=== PATIENT | male | born 1955 ===

== ENCOUNTER 2024-01-24 01:15 | Outpatient (CLI) | payer MEDICARE, SELFPAY ==
--- NOTE | 2024-01-24 | ETT_ITS ---
APPROVED REPORT Exam: Exercise Treadmill Patient Location: Out-Patient Room/Bed: Stress Nurse: Evelyne March RN Ordering Provider:JOSE ANGEL WALTER, Contact Number: [phone] BMI: 24.39 Baseline Rhythm: Sinus Rhythm Comment: PAC's, T wave inversion in aVL Indications: Syncope, Collapse, Cardiac arrhythmia, SOB Medical History Medical History: Dizziness, HLD, Gout, Migraines, Syncope, Rare tobacco use, Anxiety, Depression Cardiac Medications: Allopurinol, Aspirin, Bupriopion, Icosapent ethyl Allergies: Seasonal Cardiac Risk Factors: +family history, +HLD, +rare tobacco use Previous Cardiac Procedures: None Pretest Chest Pain Characteristics: None Exercise History: Indeterminate Physical Disabilities: None Lung Sounds: LCTA bilaterally Heart Sounds: S1/S2 regular Stress Test Details Test: Exercise stress testing was performed using a Subhash protocol. Rest Stress HR Resting HR Supine: 58 bpm Max Heart Rate (APMHR): 151 bpm Resting HR Standin bpm Target HR (85% APMHR): 128 bpm Max HR Achieved: 148 bpm % of APMHR: 98 Recovery HR: 83 bpm HR response to stress: Normal HR response to stress BP Resting BP Supine: 112/80 mmHg Resting BP Standin/84 mmHg Max BP: 188/82 mmHg Recovery BP: 142/88 mmHg BP response to stress: Normal blood pressure response to stress. ECG Resting ECG: Sinus Rhythm Ectopy: PAC's Comment: T wave inversion in aVL Stress ECG: Sinus Tachycardia ST Change: No significant ST segment changes noted Arrhythmia: PAC's Recovery ECG: Sinus Rhythm Recovery ST Change: No significant ST segment changes noted Recovery Arrhythmia: PAC's Clinical Reason for Termination: Max HR nearly achieved Stress Symptoms: Dizziness upon cessation of test Exercise duration: 8 min19 sec Highest Stage Reached: Stage 3: 3.4 mph at 14% grade. Exercise capacity: 10.16 METs Angina Score: None Kennedy Treadmill Score: 7.6 Rate Pressure Product: [id number] Stress ECG Conclusion 1. Resting electrocardiogram was normal 2. Patient exercised on the Subhash protocol completed workload of 10.16 METS 3. Normal heart rate and blood pressure response to exercise. Patient achieved 98% of predicted hear t rate for age 4. There was no electrocardiographic evidence of myocardial ischemia 5. There were no significant dysrhythmias Kennedy Treadmill Score is 7.6 which is Low risk. Stress Test Summary STAGE Time (mins) Speed (mph) Grade (%) HR BP SpO2 SYMPTOMS METS Supine 58 112/80 98% Standing 69 106/84 98% 1 3 1.7 10 103 152/72 98% 4.5 2 6 2.5 12 124 188/82 96% 7 3 9 3.4 14 148 10 1 min recovery 129 148/68 98% slightly dizzy 3 min recovery 98 182/50 dizziness resolved 6 min recovery 83 142/88 Patient presented to stress lab ambulatory and denied any symptoms of shortness of breath at rest or chest pain. Tolerated stress test well. Patient recovered and was pleasant, cooperative, and conversi ve with staff. Left stress lab ambulatory and in no apparent distress.
== END 2024-01-24 01:35 ==
DX: R06.02 Shortness of breath (principal)
CPT/HCPCS: 93016; 93018; 93017